=== PATIENT | male | born 1990 | race Caucasian/White ===

== ENCOUNTER 2017-05-10 20:45 | Emergency (ER) | payer MEDICAID, OTHER ==
[2017-05-10 20:51] VITALS: BP 150/93; PULSE 107; RESP 18; TEMP 98.8; O2SAT 98
--- NOTE | 2017-05-10 21:02 | ED PDOC ---
HPI: General Adult Time Seen by Provider: 05/10/17 20:54 Chief Complaint (Nursing): Medical Clearance Chief Complaint (Provider): medical clearance for incarceration History Per: Patient, EMS History/Exam Limitations: no limitations Severity: None Recently: Hospitalized (detox ) Additional Complaint(s): 26yo male arrives under police custody for medical and psychiatric clearance. Denies complaints. last used heroin this morning (IV), was released from inpatient detox yesterday. States has hx HIV but denies being on HAART recently. Denies fever, cough, hemoptysis, trouble swallowing or headache. Denies suicidal or homicidal thoughts. Denies skin changes or recent abscesses from IVDU. Past Medical History Reviewed: Historical Data, Nursing Documentation, Vital Signs Vital Signs: Last Vital Signs Temp 98.8 F 05/10/17 20:48 Pulse 107 H 05/10/17 20:48 Resp 18 05/10/17 20:48 BP 150/93 H 05/10/17 20:48 Pulse Ox 98 05/10/17 21:03 - Medical History PMH: Anxiety, HIV Denies: Diabetes, Hepatitis, HTN, Chronic Kidney Disease, Seizures, Sexually Transmitted Disease - Surgical History Other surgeries: abscess - Family History Family History: States: Unknown Family Hx - Immunization History Hx Tetanus Toxoid Vaccination: No Hx Influenza Vaccination: No Hx Pneumococcal Vaccination: No - Home Medications Home Medications: Ambulatory Orders Medication Instructions Recorded No Known Home Med 05/15/16 - Allergies Allergies/Adverse Reactions: Allergies Allergy/AdvReac Type Severity Reaction Status Date / Time No Known Allergies Allergy Verified 07/18/16 03:01 Review of Systems ROS Statement: Except As Marked, All Systems Reviewed And Found Negative Constitutional: Negative for: Fever, Chills Cardiovascular: Negative for: Chest Pain, Palpitations Respiratory: Negative for: Cough, Shortness of Breath Gastrointestinal: Negative for: Nausea, Abdominal Pain Genitourinary Male: Negative for: Dysuria, Frequency Musculoskeletal: Negative for: Neck Pain, Shoulder Pain Skin: Negative for: Rash, Lesions, Jaundice Neurological: Negative for: Weakness, Numbness, Confusion, Dizziness Psych: Negative for: Anxiety, Depression, Psychosis Physical Exam - Reviewed Nursing Documentation Reviewed: Yes Vital Signs Reviewed: Yes - Physical Exam Appears: Positive for: Well, Non-toxic, No Acute Distress Head Exam: Positive for: ATRAUMATIC, NORMAL INSPECTION, NORMOCEPHALIC Skin: Positive for: Normal Color, Warm, DRY Eye Exam: Positive for: EOMI, Normal appearance, PERRL ENT: Positive for: Normal ENT Inspection Neck: Positive for: Normal, Painless ROM Cardiovascular/Chest: Positive for: Regular Rate, Rhythm Respiratory: Positive for: CNT, Normal Breath Sounds Gastrointestinal/Abdominal: Positive for: Bowel Sounds, Soft. Negative for: Tenderness Back: Positive for: Normal Inspection Extremity: Positive for: Normal ROM, Other (track [place] upper extremities) Neurologic/Psych: Positive for: Alert, Oriented - ECG O2 Sat by Pulse Oximetry: 98 Medical Decision Making Medical Decision Making: accucheck mild hyperglycemia no signs current toxidrome Not taking HIV medicine but no clinical evidence of infection at this time Cleared by crisis for DC to police custody. Disposition - Clinical Impression Clinical Impression: Medical clearance for incarceration, Opioid abuse, History of HIV infection - Patient ED Disposition Is Patient to be Admitted: No Counseled Patient/Family Regarding: Studies Performed, Diagnosis, Need For Followup - Disposition Disposition: Discharged/Transfer to Law Enforcement Disposition Time: 22:30 Condition: STABLE Additional Instructions: Medically and psychiatrically stable for incarceration Instructions: HIV Infection (ED), Opioid Dependence (ED) Forms: [email or web address] (Mauritanian)
== END 2017-05-10 23:42 ==
LOC: H.ER 20:45
DX: Z02.89 Encounter for other administrative examinations (principal); F11.10 Opioid abuse, uncomplicated; F41.9 Anxiety disorder, unspecified; Z21 Asymptomatic human immunodeficiency virus [HIV] infection status

== ENCOUNTER 2017-11-06 10:17 | Emergency (ER) | payer MEDICAID, OTHER ==
[2017-11-06 10:24] VITALS: TEMP 98; BMI 25.8
--- NOTE | 2017-11-06 10:57 | ED PDOC ---
HPI: CCC, URI, Sore Throat Time Seen by Provider: 11/06/17 10:40 Chief Complaint (Nursing): ENT Problem Chief Complaint (Provider): ENT Problem History Per: Patient History/Exam Limitations: no limitations Onset/Duration Of Symptoms: Sudden Onset Current Symptoms Are (Timing): Better Additional History Per: Patient Additional Complaint(s): 27 year old male with medical history of HIV and anxiety, presents to the emergency department for an evaluation of right nostril bleed associated with headache. Patient admits to heroin use prior to arrival. PMD: none provided Past Medical History Reviewed: Historical Data, Nursing Documentation, Vital Signs Vital Signs: Last Vital Signs Temp 98 F 11/06/17 10:23 Pulse 86 11/06/17 13:30 Resp 18 11/06/17 13:30 BP 138/74 11/06/17 13:30 Pulse Ox 98 11/06/17 13:30 - Medical History PMH: Anxiety, HIV Denies: Diabetes, Hepatitis, HTN, Chronic Kidney Disease, Seizures, Sexually Transmitted Disease - Surgical History Surgical History: Denies: No Surg Hx - Family History Family History: States: Unknown Family Hx - Social History Current smoker - smoking cessation education provided: Yes Alcohol: None Drugs: Cannabis, Opiates (heroin), Methamphetamine - Immunization History Hx Tetanus Toxoid Vaccination: No Hx Influenza Vaccination: No Hx Pneumococcal Vaccination: No - Home Medications Home Medications: Ambulatory Orders Medication Instructions Recorded Ibuprofen [Motrin] 600 mg PO Q6H PRN #20 tab 11/06/17 - Allergies Allergies/Adverse Reactions: Allergies Allergy/AdvReac Type Severity Reaction Status Date / Time No Known Allergies Allergy Verified 08/07/17 17:36 Review of Systems ROS Statement: Except As Marked, All Systems Reviewed And Found Negative ENT: Positive for: Nose Discharge (right bleed) Neurological: Positive for: Headache Physical Exam - Reviewed Nursing Documentation Reviewed: Yes Vital Signs Reviewed: Yes - Physical Exam Appears: Positive for: Well, Non-toxic, No Acute Distress Head Exam: Positive for: ATRAUMATIC, NORMAL INSPECTION, NORMOCEPHALIC ENT: Positive for: Other (dried blood in right nare without ulceration, active bleeding or septal hematoma) Cardiovascular/Chest: Positive for: Regular Rate, Rhythm, Chest Non Tender. Negative for: Murmur Respiratory: Positive for: Normal Breath Sounds. Negative for: Decreased Breath Sounds, Wheezing, Respiratory Distress Neurologic/Psych: Positive for: Alert (x3), Oriented. Negative for: Motor/ Sensory Deficits - ECG O2 Sat by Pulse Oximetry: 100 (RA) Pulse Ox Interpretation: Normal Medical Decision Making Medical Decision Making: Initial Impression: Epistaxis; Substance abuse Initial Plan: * CT head without contrast Time: 1310 --CT head FINDINGS: HEMORRHAGE: No intracranial hemorrhage. BRAIN: No mass effect or edema. No atrophy or chronic microvascular ischemic changes. VENTRICLES: Unremarkable. No hydrocephalus. CALVARIUM: Unremarkable. PARANASAL SINUSES: Unremarkable as visualized. No significant inflammatory changes. MASTOID AIR CELLS: Unremarkable as visualized. No inflammatory changes. OTHER FINDINGS: None. IMPRESSION: No acute intracranial pathology. Scribe Attestation: Documented by Randi Cleaning, acting as a scribe for Symone Tian MD. Provider Scribe Attestation: All medical record entries made by the Scribe were at my direction and personally dictated by me. I have reviewed the chart and agree that the record accurately reflects my personal performance of the history, physical exam, medical decision making, and the department course for this patient. I have also personally directed, reviewed, and agree with the discharge instructions and disposition. Disposition - Clinical Impression Clinical Impression: Headache, Epistaxis, HIV disease - Disposition [facility]: [facility] [Outside] [facility] [Outside] Disposition: Routine/Home Disposition Time: 13:25 Condition: STABLE Prescriptions: Ibuprofen [Motrin] 600 mg PO Q6H PRN #20 tab PRN Reason: Pain, Moderate (4-7) Instructions: Nosebleeds, Headache, Adult, HIV/AIDS (DC) Forms: [employer] (Maori)
--- NOTE | 2017-11-06 13:12 | CT ---
PROCEDURE: CT HEAD WITHOUT CONTRAST. HISTORY: IGLESIAS COMPARISON: None available. TECHNIQUE: Axial computed tomography images were obtained through the head/brain without intravenous contrast. Radiation dose: Total exam DLP = 833.5 mGy-cm. This CT exam was performed using one or more of the following dose reduction techniques: Automated exposure control, adjustment of the mA and/or kV according to patient size, and/or use of iterative reconstruction technique. FINDINGS: HEMORRHAGE: No intracranial hemorrhage. BRAIN: No mass effect or edema. No atrophy or chronic microvascular ischemic changes. VENTRICLES: Unremarkable. No hydrocephalus. CALVARIUM: Unremarkable. PARANASAL SINUSES: Unremarkable as visualized. No significant inflammatory changes. MASTOID AIR CELLS: Unremarkable as visualized. No inflammatory changes. OTHER FINDINGS: None. IMPRESSION: No acute intracranial pathology.
[2017-11-06 14:24] VITALS: BP 138/74; PULSE 86; RESP 18
[2017-11-10 15:01] VITALS: O2SAT 100
== END 2017-11-06 14:15 | disposition home or self-care (01) ==
LOC: H.ER 10:17
DX: R51 Headache (principal); R04.0 Epistaxis; F17.200 Nicotine dependence, unspecified, uncomplicated; B20 Human immunodeficiency virus [HIV] disease